=== PATIENT | female | born 1975 | race Caucasian/White ===

== ENCOUNTER → 2016-11-25 | Outpatient (CLI) | payer MEDICARE, MEDICAID | END | disposition disaster alternative care site (69) | LOC: GBCOE 09:00 | DX: R92.2 Inconclusive mammogram (principal) | CPT/HCPCS: G0206; G0279 ==

== ENCOUNTER → 2017-01-07 | Outpatient (CLI) | payer OTHER, MEDICARE, MEDICAID | END | disposition disaster alternative care site (69) | LOC: GAMB 09:50 | DX: S89.92XA Unspecified injury of left lower leg, initial encounter (principal); M25.562 Pain in left knee; V03.90XA Pedestrian on foot injured in collision with car, pick-up truck or van, unspecified whether traffic or nontraffic accident, initial encounter; Z88.0 Allergy status to penicillin | CPT/HCPCS: A0425; A0429 ==